=== PATIENT | male | born 1970 | race Caucasian/White ===

== ENCOUNTER 2023-08-04 09:00 | Outpatient (RCR) | payer OTHER ==
[2023-08-01 09:12] VITALS: BP 97/71; PULSE 85; TEMP 97.6
[2023-08-01 09:24] VITALS: BP 116/79; PULSE 71
[2023-08-02 08:31] VITALS: BP 134/91; PULSE 84; TEMP 98.3
[2023-08-03 08:34] VITALS: BP 102/69; PULSE 80; TEMP 97.8
[~2023-08-04] VITALS: Ht 188 cm; Wt 83.1 kg
[2023-08-04 08:57] VITALS: BP 124/91; PULSE 86; TEMP 98
[~2023-08-04 09:00] MED LIST: ROCEPHIN VIA1 G/VIAL IV
[2023-08-05 08:28] VITALS: BP 122/81; PULSE 77; TEMP 97.9
== END 2023-08-05 08:43 | disposition home or self-care (01) ==
LOC: EUO 09:00
DX: L03.116 Cellulitis of left lower limb (principal)
CPT/HCPCS: J0696

== ENCOUNTER 2024-04-12 12:43 | Emergency (ER) | payer OTHER ==
[2024-04-12 12:43] VITALS: TEMP 98.6
[~2024-04-12 12:43] MED LIST changes: +NS 1,000 ML IV SCH
[2024-04-12] MEDS ORDERED: Ondansetron 4 MG/2 ML VIAL IV SCH (12:45)
[2024-04-12] MEDS ORDERED: Morphine 4 MG/ML VIAL IV SCH (12:45)
[2024-04-12 12:54] LABS: BASO # 0.1 K/mm3 (0.0-0.2); BASO % 0.6 % (0.0-2.0); EOS # 0.3 K/mm3 (0.0-0.7); EOS % 2.7 % (0.0-4.0); GRAN # 6.4 K/mm3 (1.4-6.5); GRAN % 59.4 % (42.2-75.2); HEMATOCRIT 45.1 % (42.0-52.0); HEMOGLOBIN 15.3 g/dl (13.5-18.0); LYMPH # 3.3 K/mm3 (1.2-3.4); LYMPH % 30.5 % (20.0-51.0); MEAN CELL VOLUME 87 fl (80.0-100.0); MEAN CORPUSCULAR HEMOGLOBIN 30 pg (27-31); MEAN CORPUSCULAR HGB CONC 34 g/dl (33.0-37.0); MEAN PLATELET VOLUME 10.3 fl (7.4-10.4); MONO # 0.7 K/mm3 (0.1-0.6); MONO % 6.3 % (1.7-9.3); PLATELET COUNT 273 K/mm3 (130-400); RED BLOOD COUNT 5.16 M/mm3 (4.20-5.60); REDCELL DISTRIBUTION WIDTH-CV 13.5 % (11.5-14.5)
[2024-04-12] MEDS ORDERED: Clopidogrel 300 MG DOSE (75 mg x 4 tabs) PO SCH (13:02)
[2024-04-12] MEDS ORDERED: Heparin/D5W 250 ML IV SCH (13:15)
[2024-04-12] MEDS ORDERED: Heparin 5,000 UNITS/ML 1 ML VIAL IV ONE (13:15)
[2024-04-12] MEDS ORDERED: HYDROmorphone 0.5 MG/0.5 ML SYRINGE IV PRN (13:15)
[2024-04-12] MEDS ORDERED: Heparin 5,000 UNITS/ML 1 ML VIAL IV PRN (13:15)
[2024-04-12 13:18] VITALS: BP 100/77; PULSE 79
[2024-04-12 13:20] LABS: BILIRUBIN,TOTAL 0.4 mg/dL (0.2-1.2); CALCIUM 9.7 mg/dL (8.4-10.2); CREATININE, serum 1.34 mg/dL (0.72-1.25); POTASSIUM 3.5 mEq/L (3.5-4.5); TOTAL PROTEIN 7.3 g/dl (6.2-8.1)
[2024-04-12 13:28] LABS: TROPONIN-I 0.14 ng/mL (0.00-0.033)
[2024-04-12 13:32] LABS: PROTHROMBIN TIME 10.8 SECONDS (9.7-12.8)
== END 2024-04-12 13:40 | disposition short-term general hospital (02) ==
LOC: COL.ER 12:43
PROVIDERS: Family Medicine
DX: I21.19 ST elevation (STEMI) myocardial infarction involving other coronary artery of inferior wall (principal)
CPT/HCPCS: A4314; J1170; J1644; J2270; J2405; J3101; J7030